=== PATIENT | female | born 1955 | race Two or more races ===

== ENCOUNTER 2017-04-30 14:17 | Observation (INO) | payer OTHER ==
[~2017-04-30] VITALS: Ht 157.5 cm; Wt 92.1 kg
[2017-04-30] MEDS ORDERED: SODIUM CHLORIDE 0.9% 1,000 ML IV ONE (14:52)
[2017-04-30] MEDS ORDERED: ASPIRIN 81 MG TABLET CHEW PO ONE (15:00)
[2017-04-30] MEDS ORDERED: SODIUM CHLORIDE FLUSH 10ML SYR IVF ONE (15:00)
[2017-04-30] MEDS ORDERED: ASPI-496 PO (15:18)
[2017-04-30] MEDS ORDERED: NPH,100V SC (15:18)
[2017-04-30] MEDS ORDERED: INSU100V5 SQ-INSULIN (15:18)
[2017-04-30] MEDS ORDERED: SIMV20TA3 PO (15:18)
[2017-04-30] MEDS ORDERED: LISI-170 PO (15:18)
[2017-04-30] MEDS ORDERED: LORA0.5T PO (15:18)
[2017-04-30] MEDS ORDERED: METF10002 PO (15:18)
[2017-04-30] MEDS ORDERED: ASPIRIN 81 MG TABLET CHEW ONE (15:28)
[2017-04-30 15:53] LABS: HEMATOCRIT 38.2 % (34.6-47.8); HEMOGLOBIN 12.8 g/dL (11.7-16.4); WHITE BLOOD COUNT 6.9 x10^3/uL (3.4-10)
[2017-04-30 16:05] LABS: ASPARTATE AMINO TRANSFERASE 13 U/L (15-37); BLOOD UREA NITROGEN 11 mg/dL (7-18)
[2017-04-30 16:17] LABS: IS PT STATUS REG ER OR PRE ER? YES
[2017-04-30] MEDS ORDERED: ENOXAPARIN 40 MG/0.4 ML SQ SCH (18:30)
[2017-04-30] MEDS ORDERED: LORazepam 1MG TABLET PO PRN (18:30)
[2017-04-30] MEDS ORDERED: POLYETHYLENE GLYCOL 17 GM PACKET PO PRN (18:30)
[2017-04-30] MEDS ORDERED: OXYcodone IR 5MG TABLET PO PRN (18:30)
[2017-04-30] MEDS ORDERED: ACETAMINOPHEN 325 MG TABLET PO PRN (18:30)
[2017-04-30] MEDS ORDERED: ONDANSETRON 2MG/ML, 2ML IVPush PRN (18:30)
[2017-04-30] MEDS ORDERED: TEMAZEPAM 15 MG CAPSULE PO PRN (18:30)
[2017-04-30] MEDS ORDERED: LABETALOL 5MG/ML, 20ML IVPush PRN (18:30)
[2017-04-30 19:03] VITALS: BP 150/82
[2017-04-30 19:57] VITALS: BP 150/92
[2017-04-30 20:47] LABS: IS PT STATUS REG ER OR PRE ER? NO
[2017-04-30] MEDS: INSULIN ASPART 100 UNITS/ML, PEN SQ-INSULIN SCH (21:00)
[2017-04-30] MEDS: metFORMIN 500 MG TABLET PO SCH (21:00)
[2017-04-30 21:14] VITALS: BP 144/79
[2017-05-01 01:57] VITALS: BP 137/79
[2017-05-01 03:37] LABS: IS PT STATUS REG ER OR PRE ER? NO
[2017-05-01] MEDS ORDERED: ASPIRIN 325 MG TABLET EC PO SCH (06:00)
[2017-05-01] MEDS: INSULIN ASPART 100 UNITS/ML, PEN SQ-INSULIN SCH ×2 (07:25→13:01)
[2017-05-01 08:20] VITALS: BP 147/84
[2017-05-01] MEDS: metFORMIN 500 MG TABLET PO SCH (08:23)
[2017-05-01] MEDS ORDERED: SIMVASTATIN 20 MG TABLET PO SCH (09:00)
[2017-05-01] MEDS ORDERED: SENNA/DOCUSATE TABLET PO SCH (09:00)
[2017-05-01] MEDS ORDERED: LISINOPRIL 20 MG TABLET PO SCH (09:00)
[2017-05-01] MEDS ORDERED: REGADENOSON 0.4 MG/5 ML SYRINGE ONE (09:21)
== END 2017-05-01 15:40 | disposition home or self-care (01) ==
LOC: ED 16:33 → EDIP 17:26 → INTOOBSV 17:26 → 5SO 18:35 → UNDODISIN 05-01 15:40
PROVIDERS: ADMIT Internal Medicine; ATTEND Internal Medicine
DX: R07.89 Other chest pain (principal); K59.00 Constipation, unspecified; E11.9 Type 2 diabetes mellitus without complications; E78.5 Hyperlipidemia, unspecified; I10 Essential (primary) hypertension; F41.9 Anxiety disorder, unspecified
CPT/HCPCS: 36415; 74022; 78452; 80053; 80061; 82962; 84484; 85025; 93005; 93017; 96360; 96361; 96372; 99285; A9502; C9898; G0378; J1650; J2785; J7030